=== PATIENT | female | born 1970 | race Caucasian/White ===

== ENCOUNTER → 2016-05-23 | Outpatient (CLI) | payer BC ==
--- NOTE | 2016-05-23 09:53 | REP ---
Clinical: Trauma. Technique: Frontal view of the chest with multiple views of the right hemithorax. Findings: Frontal view of the chest demonstrates no acute cardiopulmonary process. Multiple views of the right hemithorax demonstrates no obvious acute rib fracture or pathology. Impression: Normal right rib series Signed by Brent Gao MD 05/23/2016 09:45 A
== END | disposition home or self-care (01) ==
LOC: M RAD 09:12
PROVIDERS: ATTEND Nurse Practitioner Family
DX: R07.81 Pleurodynia (principal)

== ENCOUNTER → 2017-05-09 | Outpatient (REF) | payer BC ==
[2017-05-09 22:31] LABS: APPEARANCE, URINE CLEAR (CLEAR); BACTERIA, URINE AUTO 1+ (NEGATIVE); BILIRUBIN, URINE AUTO NEGATIVE (NEGATIVE); BLOOD, URINE BLOOD NEGATIVE (NEGATIVE); COLOR, URINE AMBER (YELLOW); GLUCOSE, URINE (UA) AUTO NEGATIVE (NEGATIVE); KETONE, URINE AUTO NEGATIVE (NEGATIVE); LEUKOCYTE ESTERASE, URINE AUTO NEGATIVE (NEGATIVE); NITRITE, URINE AUTO POSITIVE (NEGATIVE); PROTEIN, URINE AUTO NEGATIVE (NEGATIVE); RBC, URINE AUTO 0 /HPF (0-3); SPECIFIC GRAVITY URINE AUTO 1.002 (1.002-1.035); SQUAMOUS EPITHELIAL CELL UR AU 1 /HPF (0-6); WBC, URINE AUTO 2 /HPF (0-3)
== END ==
LOC: M LAB REF 22:00
DX: N39.0 Urinary tract infection, site not specified (principal)
CPT/HCPCS: 81001

== ENCOUNTER 2018-09-26 21:22 | Emergency (ER) | payer BC ==
[~2018-09-26] VITALS: Ht 170.2 cm; Wt 61.4 kg
[2018-09-26] MEDS ORDERED: CEFD1CAP8 (21:30)
--- NOTE | 2018-09-26 23:48 | REPVR ---
EXAM: CT Head Without Contrast EXAM DATE/TIME: 09/26/2018 10:21 PM CLINICAL HISTORY: 48 years old, female; Pain; Other: Right frontal headache; Additional info: Right frontal headache with nausea TECHNIQUE: Imaging protocol: Axial computed tomography images of the head without contrast. Radiation optimization: All CT scans at this facility use at least one of these dose optimization techniques: automated exposure control; mA and/or kV adjustment per patient size (includes targeted exams where dose is matched to clinical indication); or iterative reconstruction. COMPARISON: No relevant prior studies available. FINDINGS: Brain: There is no evidence of intracranial bleed. The hung-white differentiation appears preserved. There is some asymmetry in the region of the quadrigeminal cistern on the left. Suggest MRI with contrast for clarification. Ventricles: Normal appearing ventricles. Bones/joints: There is no evidence of fracture. Sinuses: Clear paranasal sinuses. Mastoid air cells: Clear mastoid air cells. Soft tissues: Unremarkable. IMPRESSION: 1. No evidence of bleed. 2. Some asymmetry of the brain at the quadrigeminal cistern on the left and approaching the vein of Arthur. To exclude any possibility of pathology suggest correlation with MRI with contrast. Electronically signed by: Dawit Harris On 09/26/2018 23:47:36 PM
[2018-09-27 00:17] VITALS: BP 106/71
== END 2018-09-27 00:19 | disposition home or self-care (01) ==
LOC: M ED 21:22
DX: G44.009 Cluster headache syndrome, unspecified, not intractable (principal); Z88.0 Allergy status to penicillin

== ENCOUNTER → 2019-11-05 | Outpatient (REF) | payer BC ==
[~2019-11-05] MED LIST: CEFD1CAP8
== END ==
LOC: EEVIPCON 09:58 → M LAB REF 09:58
PROVIDERS: ATTEND Physician Assistant Medical
DX: Z11.59 Encounter for screening for other viral diseases (principal); Z20.828 Contact with and (suspected) exposure to other viral communicable diseases

== ENCOUNTER 2019-11-09 20:49 | Emergency (ER) | payer BC | END 2019-11-09 21:50 | disposition home or self-care (01) | LOC: M ED 20:49 | DX: U07.1 COVID-19 (principal); J45.909 Unspecified asthma, uncomplicated; Z79.899 Other long term (current) drug therapy; Z79.2 Long term (current) use of antibiotics; Z79.52 Long term (current) use of systemic steroids ==

== ENCOUNTER → 2024-06-02 | Outpatient (REF) | payer BC ==
[~2024-06-02] MED LIST changes: -CEFD1CAP8; +CEFD1CAP9
== END ==
LOC: M LAB REF 16:38
PROVIDERS: ATTEND Internal Medicine
DX: K14.0 Glossitis (principal)

== ENCOUNTER → 2025-01-03 | Outpatient (CLI) | payer BC | LOC: M WUC 14:06 | PROVIDERS: ATTEND Nurse Practitioner Family | DX: M25.511 Pain in right shoulder (principal) ==